=== PATIENT | female | born 1950 | race Caucasian/White ===

== ENCOUNTER 2016-10-21 06:45 | Emergency (ER) | payer OTHER ==
--- NOTE | 2016-10-21 08:58 | DIAGNOSTIC IMAGING REPORT ---
PROCEDURE: XR CHEST 2 VIEW INDICATION: COUGH TECHNIQUE: PA and lateral views. COMPARISON: None. FINDINGS: Lungs are clear. Heart and mediastinum are normal. Mild degenerative change of the thoracic spine. IMPRESSION: 1. Negative chest.
--- NOTE | 2016-10-21 09:10 | ED ORDER SUMMARY ---
..... Patient: EZE CARVAJAL OrderSheet [facility] VisitID: [id number] [address] [place] [address] 65y, F Registration Date/Time: 10/21/2016 ORDER SHEET Weight: 73.9 kg (stated) Allergies: No Known Drug Allergy GENERAL ORDERS: Chest 2V Urgent (07:06 10/21/2016 Buddy Rosen per protocol) (Ack 7:08 KHoerner) (8:40 KHoerner) MEDICATION ORDERS: IV FLUIDS: ORDER SHEET NOTES: [Electronically signed by Carey Britt R.N. (09:16 10/21/2016)] [Electronically signed by Dolores Fung MD (13:34 10/29/2016)] [Electronically locked/signed by Carey Britt R.N. (09:16 10/21/2016)]
--- NOTE | 2016-10-21 09:10 | ED ORDER SUMMARY ---
..... Patient: EZE CARVAJAL OrderSheet [facility] VisitID: [id number] [address] [place] [address] 65y, F Registration Date/Time: 10/21/2016 ORDER SHEET Weight: 73.9 kg (stated) Allergies: No Known Drug Allergy GENERAL ORDERS: Chest 2V Urgent (07:06 10/21/2016 Buddy Rosen per protocol) (Ack 7:08 KHoerner) (8:40 KHoerner) MEDICATION ORDERS: IV FLUIDS: ORDER SHEET NOTES: [Electronically signed by Carey Britt R.N. (09:16 10/21/2016)] [Electronically signed by Dolores Fung MD (13:34 10/29/2016)] [Electronically locked/signed by Carey Britt R.N. (09:16 10/21/2016)]
--- NOTE | 2016-10-21 09:10 | ED CLINICAL REPORT ---
Clinical Report - Physicians/Mid Levels [facility] [address] [place] [address] 10/21/2016 6:47 Patient: EZE CARVAJAL Time Seen: 07:29. Arrived- By private vehicle. Historian- patient. HISTORY OF PRESENT ILLNESS Chief Complaint: COUGH. This started about 4 days ago and is still present (Pt states, "this cough just won't go away."). Illness not described as moderate. The patient has had a cough. She has had scant amounts of thin, clear, white sputum. No difficulty breathing, chest discomfort or pain, fever or muscle aches. No chills, sore throat, hoarseness or nasal congestion or discharge. No sinus pressure, sinus drainage or ear pain. Additional history - No known contact with a sick individual. Similar symptoms previously: Occasionally. Recent medical care: The patient was seen recently by a health care provider. ( Pt states that she was given a 3 day course of steroids last month for similar sx.). REVIEW OF SYSTEMS No headache, eye discomfort, nausea, vomiting or diarrhea. No abdominal pain, hay fever, pedal edema, calf pain or difficulty with urination. No skin rash, enlarged lymph nodes or joint pain. All systems otherwise negative, except as recorded above. PAST HISTORY Problems: Depression. Anxiety Reaction. Additional Surgeries: Bladder suspension . Hysterectomy. Tubal Ligation. Medications: LORazepam Oral 1 mg, PRN. Pristiq Oral 50mg , daily. Allergies: No Known Drug Allergy. SOCIAL HISTORY Former smoker, end date 2011. No alcohol use or drug use. ADDITIONAL NOTES The nursing notes have been reviewed. PHYSICAL EXAM Vital Signs: 10/21/2016 06:57 BP: 134/87. HR: 85. RR: 17. O2 saturation: 95%. Temp: 98.4 F. Pain level now: 4/10. Have been reviewed. Appearance: Alert. No acute distress. Eyes: Pupils equal, round and reactive to light. Eyes normal inspection. ENT: Nose normal. Neck: Normal inspection. CVS: Normal heart rate and rhythm. Heart sounds normal. Pulses normal. Respiratory: No respiratory distress. Mild bilateral rhonchi present diffusely. Abdomen: Soft and nontender. Back: Normal inspection. No CVA tenderness. Skin: Skin warm and dry. Normal skin color. No rash. Normal skin turgor. Extremities: Extremities exhibit normal ROM. No lower extremity edema. Neuro: (Grossly normal.). LABS, X-RAYS, AND EKG Chest X-ray: No acute disease. Normal lung markings present. Normal heart size. Mediastinum normal. Great vessels normal. Soft tissues normal. No infiltrate. No fracture. No bony lesion present. Views: PA and lateral. Technique: good. The X-rays were independently viewed by me and interpreted contemporaneously by me. Prior films were not available for comparison. Pulse Oximetry: 10/21/2016 06:57 O2 saturation: 95%. (FIO2 - room air). Interpretation: normal. PROGRESS AND PROCEDURES Course of Care: I did d/w pt that 4 days of coughing is well within the expected duration of a viral URI, and in fact, she will likely have the cough for several more days. CXR was negative. I did not find evidence of an emergent condition. Patient counseled in person regarding the patient's stable condition, test results, diagnosis and need for follow-up. Concerns were addressed. Old medical records reviewed. Disposition: Discharged. Condition: stable. CLINICAL IMPRESSION Acute viral rhinitis. INSTRUCTIONS Drink plenty of fluids. (Your x-ray looks good--no pneumonia. The duration of your cough, at this point, is well within the usual time frame for a viral cough, and will likely begin to improve in about a week. You may take the cough medicine for this, as needed.). Warnings: GENERAL WARNINGS: Return or contact your physician immediately if your condition worsens or changes unexpectedly, if not improving as expected, or if other problems arise. Your Current Medications: CONTINUE TAKING THE FOLLOWING MEDICATIONS: LORazepam Oral : 1 mg PRN. Pristiq Oral : 50mg daily. Prescription Medications: Codeine / APAP 30 mg/300 mg: take 1 orally every 4 hours. Dispense fifteen (15). No refill. (prn cough) Follow-up: Follow up with your doctor in two weeks if not better. Understanding of the discharge instructions verbalized by patient. (Electronically signed by Dolores Fung MD 10/29/2016 13:34)
--- NOTE | 2016-10-21 09:10 | ED NURSING NOTES ---
Clinical Report - Nurses [facility] [place] [address] 10/21/2016 6:47 Patient: EZE CARVAJAL TRIAGE Triage time 06:57. Acuity: LEVEL 4. Chief Complaint: DYSPNEA and COUGH. 07:03. Alert. SEPSIS SCREEN: Sepsis Screen. Negative (no infection suspected/documented). KEON COMA SCORE: [place] Coma Scale: 15- eyes open spontaneously (4); best verbal response- oriented x 4 (5); best motor response- obeys commands (6). --07:03 Tariq Moore R.N. 06:57 10/21/16. BP: 134/87. HR: 85. RR: 17. O2 saturation: 95% on room air. Temp: 98.4 F (oral). Pain level now: 10/29. --07:03 Tariq Moore R.N. Weight: 73.9 kg stated. Height/Length: 66 inches Per Patient. BMI: 26.3. --07:02 Tariq Moore R.N. Medications Pristiq Oral 50mg , daily. --07:00 Tariq Moore R.N. LORazepam Oral 1 mg, PRN. --07:01 Tariq Moore R.N. Medication/allergy information source: the patient. --07:03 Tariq Moore R.N. Allergies No Known Drug Allergy. --07:01 Tariq Moore R.N. History Arrived by private vehicle. Historian: patient. Unaccompanied. Primary physician ([facility]). Onset. (3 days ago). Treatment EMPLOYMENT CONSULTANT: (Nyquil, dayquil, cough syrup). PAST MEDICAL HX: Immunizations: up-to-date. The patient has had a hysterectomy. SOCIAL HX: Former smoker, end date 2011. No alcohol use or drug use. No infectious disease exposure. ABUSE ASSESSMENT: No report of abuse. FALL RISK ASSESSMENT: Fall risk assessment completed. No fall risk identified. NUTRITIONAL RISK ASSESSMENT: The nutritional risk assessment revealed no deficiencies. FUNCTIONAL ASSESSMENT: Functional assessment: no impairments noted. LEARNING NEEDS ASSESSMENT: The learning needs assessment revealed no barriers. SKIN INTEGRITY ASSESSMENT: Skin integrity risk assessment completed. No skin integrity risk identified. --07:03 Tariq Moore R.N. PROBLEMS: Depression. Anxiety Reaction. --07:02 Tariq Moore R.N. ADDITIONAL SURGERIES: Bladder suspension . --07:02 Tariq Moore R.N. Tubal Ligation. --07:02 Tariq Moore R.N. Hysterectomy. --07:02 Tariq Moore R.N. Interventions ID band on patient. To treatment room. --07:03 Tariq Moore R.N. PHYSICAL ASSESSMENT 07:03. Ambulatory to room. Patient gowned. GENERAL / NEURO / PSYCH: Alert. Oriented X 4. HEENT: No facial asymmetry noted. Mucous membranes are pink. RESPIRATORY: Respirations not labored. Cough. SKIN: Skin intact. Skin is warm and dry. Normal skin turgor. --07:03 Tariq Moore R.N. NURSING PROGRESS NOTES 07:03. Head of bed elevated. Two patient identifiers checked. Call light placed in reach. Bed placed in lowest position. Brakes of bed on. Patient ready for evaluation- chart flagged. --07:03 Tariq Moore R.N. ( Patient coughing and breathing hard, she doesn't want a blanket at this time.). --07:44 Carey Britt R.N. 07:41 10/21/16. BP: 125/84 (regular adult cuff) taken on the left arm, while sitting. HR: 75. RR: 24. O2 saturation: 95% on room air. Pain level now: 0/10. --07:44 Carey Britt R.N. Care transferred and report received (Tariq RN). --07:45 Carey Britt R.N. Patient walked back to ED from radiology with tech. (08:42 Oct 21 2016). --08:42 Carey Britt R.N. ( Patient non productive cough, she said it was a productive cough this morning that is clear in color). --08:46 Carey Britt R.N. 08:44 10/21/16. BP: 138/77 (regular adult cuff) taken on the left arm, while sitting. HR: 60. RR: 18 (regular). O2 saturation: 94% on room air. Pain level now: 0/10. --08:46 Carey Britt R.N. DISPOSITION / DISCHARGE Condition at departure: unchanged. No learning barriers present. Discharge instructions provided and reviewed with the patient. Reviewed medication(s) side effects, precautions and dosing information. Patient verbalized understanding. Written instructions provided in Kiswahili. The patient was discharged by the physician. She was discharged home. She left the Emergency Department ambulatory and via private vehicle. Patient driving. ( Patient has no further question.). --09:14 Carey Britt R.N. 09:11 10/21/16. BP: 131/79 (regular adult cuff) taken on the left arm, while sitting. HR: 66 (regular). RR: 18 (regular). O2 saturation: 95% on room air. Temp: 98.2 F (oral). Pain level now: 0/10. --09:14 Carey Britt R.N. Departure time: 09:Oct 21 2016. --09:16 Carey Britt R.N. Locked/Released at 10/21/2016 9:16 by Carey Britt R.N.
--- NOTE | 2016-10-21 09:10 | ED NURSING NOTES ---
Clinical Report - Nurses [facility] [place] [address] 10/21/2016 6:47 Patient: EZE CARVAJAL TRIAGE Triage time 06:57. Acuity: LEVEL 4. Chief Complaint: DYSPNEA and COUGH. 07:03. Alert. SEPSIS SCREEN: Sepsis Screen. Negative (no infection suspected/documented). KEON COMA SCORE: [place] Coma Scale: 15- eyes open spontaneously (4); best verbal response- oriented x 4 (5); best motor response- obeys commands (6). --07:03 Tariq Moore R.N. 06:57 10/21/16. BP: 134/87. HR: 85. RR: 17. O2 saturation: 95% on room air. Temp: 98.4 F (oral). Pain level now: 10/29. --07:03 Tariq Moore R.N. Weight: 73.9 kg stated. Height/Length: 66 inches Per Patient. BMI: 26.3. --07:02 Tariq Moore R.N. Medications Pristiq Oral 50mg , daily. --07:00 Tariq Moore R.N. LORazepam Oral 1 mg, PRN. --07:01 Tariq Moore R.N. Medication/allergy information source: the patient. --07:03 Tariq Moore R.N. Allergies No Known Drug Allergy. --07:01 Tariq Moore R.N. History Arrived by private vehicle. Historian: patient. Unaccompanied. Primary physician ([facility]). Onset. (3 days ago). Treatment DISTANCE LEARNING PROGRAM COORDINATOR: (Nyquil, dayquil, cough syrup). PAST MEDICAL HX: Immunizations: up-to-date. The patient has had a hysterectomy. SOCIAL HX: Former smoker, end date 2011. No alcohol use or drug use. No infectious disease exposure. ABUSE ASSESSMENT: No report of abuse. FALL RISK ASSESSMENT: Fall risk assessment completed. No fall risk identified. NUTRITIONAL RISK ASSESSMENT: The nutritional risk assessment revealed no deficiencies. FUNCTIONAL ASSESSMENT: Functional assessment: no impairments noted. LEARNING NEEDS ASSESSMENT: The learning needs assessment revealed no barriers. SKIN INTEGRITY ASSESSMENT: Skin integrity risk assessment completed. No skin integrity risk identified. --07:03 Tariq Moore R.N. PROBLEMS: Depression. Anxiety Reaction. --07:02 Tariq Moore R.N. ADDITIONAL SURGERIES: Bladder suspension . --07:02 Tariq Moore R.N. Tubal Ligation. --07:02 Tariq Moore R.N. Hysterectomy. --07:02 Tariq Moore R.N. Interventions ID band on patient. To treatment room. --07:03 Tariq Moore R.N. PHYSICAL ASSESSMENT 07:03. Ambulatory to room. Patient gowned. GENERAL / NEURO / PSYCH: Alert. Oriented X 4. HEENT: No facial asymmetry noted. Mucous membranes are pink. RESPIRATORY: Respirations not labored. Cough. SKIN: Skin intact. Skin is warm and dry. Normal skin turgor. --07:03 Tariq Moore R.N. NURSING PROGRESS NOTES 07:03. Head of bed elevated. Two patient identifiers checked. Call light placed in reach. Bed placed in lowest position. Brakes of bed on. Patient ready for evaluation- chart flagged. --07:03 Tariq Moore R.N. ( Patient coughing and breathing hard, she doesn't want a blanket at this time.). --07:44 Carey Britt R.N. 07:41 10/21/16. BP: 125/84 (regular adult cuff) taken on the left arm, while sitting. HR: 75. RR: 24. O2 saturation: 95% on room air. Pain level now: 0/10. --07:44 Carey Britt R.N. Care transferred and report received (Tariq RN). --07:45 Carey Britt R.N. Patient walked back to ED from radiology with tech. (08:42 Oct 21 2016). --08:42 Carey Britt R.N. ( Patient non productive cough, she said it was a productive cough this morning that is clear in color). --08:46 Carey Britt R.N. 08:44 10/21/16. BP: 138/77 (regular adult cuff) taken on the left arm, while sitting. HR: 60. RR: 18 (regular). O2 saturation: 94% on room air. Pain level now: 0/10. --08:46 Carey Britt R.N. DISPOSITION / DISCHARGE Condition at departure: unchanged. No learning barriers present. Discharge instructions provided and reviewed with the patient. Reviewed medication(s) side effects, precautions and dosing information. Patient verbalized understanding. Written instructions provided in Maori. The patient was discharged by the physician. She was discharged home. She left the Emergency Department ambulatory and via private vehicle. Patient driving. ( Patient has no further question.). --09:14 Carey Britt R.N. 09:11 10/21/16. BP: 131/79 (regular adult cuff) taken on the left arm, while sitting. HR: 66 (regular). RR: 18 (regular). O2 saturation: 95% on room air. Temp: 98.2 F (oral). Pain level now: 0/10. --09:14 Carey Britt R.N. Departure time: 09:Oct 21 2016. --09:16 Carey Britt R.N. Locked/Released at 10/21/2016 9:16 by Carey Britt R.N.
--- NOTE | 2016-10-29 13:35 | ED MED RECONCILIATION SUMMARY ---
Patient: EZE CARVAJAL Medication Reconciliation Report [facility] VisitID: [id number] [address] [place] [address] 65y, F Registration Date/Time: 10/21/2016 Weight: 73.9 kg Height/Length: 66 in. BMI: 26.3 ALLERGIES: No Known Drug Allergy The patient's Home Medications are listed below: CONTINUE TAKING THE FOLLOWING MEDICATIONS: LORazepam Oral 1 mg, PRN Pristiq Oral 50mg , daily The source(s) of the original Home Medication information: patient The following Medications were given to the patient in the Emergency Department: None. The following Medications were prescribed to the patient: Codeine / APAP 30 mg/300 mg: take 1 orally every 4 hours. Dispense fifteen (15). No refill.(prn cough) -- Dolores Fung MD
--- NOTE | 2016-10-29 13:35 | ED MED RECONCILIATION SUMMARY ---
Patient: EZE CARVAJAL Medication Reconciliation Report [facility] VisitID: [id number] [address] [place] [address] 65y, F Registration Date/Time: 10/21/2016 Weight: 73.9 kg Height/Length: 66 in. BMI: 26.3 ALLERGIES: No Known Drug Allergy The patient's Home Medications are listed below: CONTINUE TAKING THE FOLLOWING MEDICATIONS: LORazepam Oral 1 mg, PRN Pristiq Oral 50mg , daily The source(s) of the original Home Medication information: patient The following Medications were given to the patient in the Emergency Department: None. The following Medications were prescribed to the patient: Codeine / APAP 30 mg/300 mg: take 1 orally every 4 hours. Dispense fifteen (15). No refill.(prn cough) -- Dolores Fung MD
--- NOTE | 2016-10-29 13:35 | ED MAR SUMMARY ---
..... Medication Administration Record [facility] [address] [place], [place] [id number] Patient: EZE CARVAJAL Visit ID: [id number] 65y, F Weight: 73.9 kg Height/Length: 66 in BMI: 26.3 ALLERGIES: No Known Drug Allergy
--- NOTE | 2016-10-29 13:35 | ED DISCHARGE INSTRUCTIONS ---
Patient: EZE CARVAJAL General Instructions [facility] VisitID: [id number] [place] [address] 65y, F Registration Date/Time: 10/21/2016 Acute viral rhinitis. INSTRUCTIONS Drink plenty of fluids. (Your x-ray looks good--no pneumonia. The duration of your cough, at this point, is well within the usual time frame for a viral cough, and will likely begin to improve in about a week. You may take the cough medicine for this, as needed.). Warnings: GENERAL WARNINGS: Return or contact your physician immediately if your condition worsens or changes unexpectedly, if not improving as expected, or if other problems arise. Your Current Medications: CONTINUE TAKING THE FOLLOWING MEDICATIONS: LORazepam Oral : 1 mg PRN. Pristiq Oral : 50mg daily. Prescription Medications: Codeine / APAP 30 mg/300 mg: take 1 orally every 4 hours. Dispense fifteen (15). No refill. (prn cough) Follow-up: Follow up with your doctor in two weeks if not better. Understanding of the discharge instructions verbalized by patient. (Electronically signed by Dolores Fung MD 10/29/2016 13:34)
--- NOTE | 2016-10-29 13:35 | ED DISCHARGE INSTRUCTIONS ---
Patient: EZE CARVAJAL General Instructions [facility] VisitID: [id number] [place] [address] 65y, F Registration Date/Time: 10/21/2016 Acute viral rhinitis. INSTRUCTIONS Drink plenty of fluids. (Your x-ray looks good--no pneumonia. The duration of your cough, at this point, is well within the usual time frame for a viral cough, and will likely begin to improve in about a week. You may take the cough medicine for this, as needed.). Warnings: GENERAL WARNINGS: Return or contact your physician immediately if your condition worsens or changes unexpectedly, if not improving as expected, or if other problems arise. Your Current Medications: CONTINUE TAKING THE FOLLOWING MEDICATIONS: LORazepam Oral : 1 mg PRN. Pristiq Oral : 50mg daily. Prescription Medications: Codeine / APAP 30 mg/300 mg: take 1 orally every 4 hours. Dispense fifteen (15). No refill. (prn cough) Follow-up: Follow up with your doctor in two weeks if not better. Understanding of the discharge instructions verbalized by patient. (Electronically signed by Dolores Fung MD 10/29/2016 13:34)
--- NOTE | 2016-10-29 13:35 | ED MAR SUMMARY ---
..... Medication Administration Record [facility] [address], [place] [id number] Patient: EZE CARVAJAL Visit ID: [id number] 65y, F Weight: 73.9 kg Height/Length: 66 in BMI: 26.3 ALLERGIES: No Known Drug Allergy
== END 2016-10-21 09:15 | disposition home or self-care (01) ==
LOC: ED SRH 06:45
DX: J00 Acute nasopharyngitis [common cold] (principal)